=== PATIENT | female | born 1935 | race Caucasian/White ===

== ENCOUNTER 2021-03-12 12:50 | Emergency (ER) | payer MEDICARE, BC ==
--- NOTE | 2021-03-12 13:07 | EDM.PDOC ---
ED HPI GENERAL MEDICAL PROBLEM - General Stated Complaint: CHEST PAIN Time Seen by Provider: 03/12/21 13:01 Source of Information: Reports: Patient History Limitations: Reports: No Limitations - History of Present Illness INITIAL COMMENTS - FREE TEXT/NARRATIVE: kip comes from home ambulatory with concerns for episode of chest pain she had around noon, while at rest , described the pain as burning sensation , mid chest and over the epigastric area, going to her back, deies SOB, diaphoresis, cough or any other associated sx or concerns, this lasted about 15 minutes and now totally gone , pt report Hx of similar problems about 4 months ago but did not last this long and had taken then OTC antacids, pt is independent with ADL, denies Known hx of CAD, resting here comfortably with stable vitals and NL EKG on arrival. Chest Pain Score (Numeric/FACES): 5 - Related Data Allergies Allergy/AdvReac Type Severity Reaction Status Date / Time No Known Allergies Allergy Verified 03/12/21 13:34 Home Meds: Home Meds Aspirin 81 mg PO DAILY 03/12/21 [History] Levothyroxine 75 mcg PO ACBREAKFAST 03/12/21 [History] PARoxetine [Paxil] 20 mg PO DAILY 03/12/21 [History] Simvastatin 20 mg PO DAILY 03/12/21 [History] ED ROS GENERAL - Review of Systems Review Of Systems: See Below Constitutional: Reports: No Symptoms HEENT: Reports: No Symptoms Respiratory: Reports: No Symptoms Cardiovascular: Reports: Chest Pain. Denies: Claudication, Dyspnea on Exertion, Lightheadedness GI/Abdominal: Reports: No Symptoms : Reports: No Symptoms Musculoskeletal: Reports: No Symptoms Neurological: Reports: No Symptoms ED EXAM, GENERAL - Physical Exam Exam: See Below Exam Limited By: No Limitations General Appearance: No Apparent Distress Eye Exam: Bilateral Eye: Normal Inspection Ears: Normal External Exam Throat/Mouth: Normal Inspection, Normal Oropharynx Neck: Normal Inspection, Supple Respiratory/Chest: No Respiratory Distress, Lungs Clear Cardiovascular: Normal Peripheral Pulses, Regular Rate, Rhythm, No Edema, No Gallop, No Murmur GI/Abdominal: Normal Bowel Sounds, Soft, Non-Tender Extremities: Normal Inspection, Normal Range of Motion, Non-Tender Neurological: Alert, Oriented, No Motor/Sensory Deficits Psychiatric: Normal Affect Skin Exam: Warm, Dry #1 Interpretation EKG Date: 03/12/21 Time: 14:21 Rhythm: NSR Course - Vital Signs Text/Narrative:: unremarkable labs and CXR results were explained to pt, EKG shows NSR, trop and lipase are neg, pt is asymptomatic, was given gi cocktail, likely her presentation is secondary to GERD,. she is hypertensive on presentation, was given Catapres and now her SBP is at 172, pt is asymptomatic in this regards. was asked to start OTC Prilosec 20 daily and follow with her PCP in 1 week for re-check omn elevated BP, also if continue with recurrent chest pain , to be scheduled for a stress test. Last Recorded V/S: Last Vital Signs Temp 36.7 C 03/12/21 13:31 Pulse 60 03/12/21 13:31 Resp 16 03/12/21 13:31 BP 195/74 H 03/12/21 13:42 Pulse Ox 95 03/12/21 13:31 - Orders/Labs/Meds Orders: Active Orders 24 hr Category Date Time Status Chest 1V Frontal [CR] Stat Exams 03/12/21 13:09 Ordered EKG 12 Lead [EK] Routine Ther 03/12/21 13:33 Ordered Labs: Laboratory Tests 03/12/21 03/12/21 03/12/21 Range/Units 12:55 12:55 12:55 WBC 6.1 (3.0-10.3) x10-3/uL RBC 4.21 (3.60-5.20) x10(6)uL Hgb 13.5 (11.4-15.5) g/dL Hct 40.3 (34.2-48.2) % MCV 95.8 (76.7-100.5) fL MCH 32.2 (23.9-33.9) pg MCHC 33.6 (31.9-34.8) g/dL RDW 12.6 (12.3-16.5) % Plt Count 245 (151-488) x10(3)uL MPV 7.2 (7.1-12.4) fL Neut % (Auto) 39.9 (30.8-76.2) % Lymph % (Auto) 47.2 (18.4-52.1) % [place] % (Auto) 10.2 (4.4-15.7) % Eos % (Auto) 1.7 (0.6-8.1) % Baso % (Auto) 1.0 (0.2-1.5) % Neut # (Auto) 2.4 (1.5-6.3) x10-3/uL Lymph # (Auto) 2.9 (1.0-4.4) x10-3/uL [place] # (Auto) 0.6 (0.3-1.0) x10-3/uL Eos # (Auto) 0.1 (0.0-0.8) x10-3/uL Baso # (Auto) 0.1 (0.0-0.1) x10-3/uL Sodium 145 (135-145) mmol/L Potassium 4.0 (3.5-5.3) mmol/L Chloride 107 (100-110) mmol/L Carbon Dioxide 30 (21-32) mmol/L BUN 16 (7-18) mg/dL Creatinine 0.9 (0.55-1.02) mg/dL Est Cr Clr Drug Dosing 38.75 mL/min Estimated GFR (MDRD) 59 L (>60) BUN/Creatinine Ratio 17.8 (9-20) Glucose 82 (80-116) mg/dL Calcium 8.6 (8.6-10.2) mg/dL Total Bilirubin 0.5 (0.1-1.3) mg/dL AST 17 (5-25) IU/L ALT 23 (12-36) U/L Alkaline Phosphatase 78 (56-112) IU/L Troponin I 7.5 (4.0-60.3) pg/mL Total Protein 7.1 (6.0-8.0) g/dL Albumin 3.5 (3.2-4.6) g/dL Globulin 3.6 g/dL Albumin/Globulin Ratio 1.0 Lipase 76 (73-393) U/L Meds: Medications Discontinued Medications Generic Name Dose Route Start Last Admin Trade Name Freq PRN Reason Stop Dose Admin Clonidine HCl 0.2 mg 03/12/21 13:39 03/12/21 13:42 Clonidine 0.1 Mg Tab PO 03/12/21 13:40 0.2 mg ONETIME ONE Administration Al Hydroxide/Mg Hydroxide 15 0 ml 03/12/21 13:10 03/12/21 13:15 ml/ Lidocaine HCl 15 ml PO 03/12/21 13:11 15 ml ONETIME ONE Administration Departure - Departure Time of Disposition: 14:24 Disposition: Home, Self-Care 01 Clinical Impression: Chest pain - Discharge Information Sepsis Event Note (ED) - Focused Exam Vital Signs: Vital Signs Temp Pulse Resp BP BP Pulse Ox 03/12/21 13:42 195/74 H 03/12/21 13:31 36.7 C 60 16 182/84 H 95 - My Orders Last 24 Hours: My Active Orders 03/12/21 13:09 Chest 1V Frontal [CR] Stat 03/12/21 13:33 EKG 12 Lead [EK] Routine - Assessment/Plan Last 24 Hours: My Active Orders 03/12/21 13:09 Chest 1V Frontal [CR] Stat 03/12/21 13:33 EKG 12 Lead [EK] Routine
[2021-03-12] MEDS: Alum Hydroxide/Mag Hydroxide 15 ML, Lidocaine 2% 15 ML PO ONE ×2 (13:15)
[2021-03-12] MEDS: cloNIDine 0.1 MG Tab PO ONE (13:42)
--- NOTE | 2021-03-12 15:29 | CR ---
INDICATION: Chest pain. CHEST, ONE VIEW: Portable AP upright view of the chest 03/12/21 - no comparisons. The heart did not appear enlarged. The aorta is mildly tortuous with minimal calcification in the arch. Overlying EKG leads are noted. Apparent minimal nodules noted at the right lung base. Followup chest x-ray, comparison with previous x-rays or CT without and possibly with IV contrast, may be helpful for further evaluation. Otherwise, no active infiltrate or effusion was identified. MTDD
== END 2021-03-12 14:41 | disposition home or self-care (01) ==
LOC: FB.ED 12:50
DX: R07.9 Chest pain, unspecified (principal); Z79.82 Long term (current) use of aspirin; Z79.899 Other long term (current) drug therapy
CPT/HCPCS: 36415; 71045; 80053; 83690; 84484; 85025; 93005; 99285-25; A9270-GY